=== PATIENT | female | born 1985 | race Caucasian/White ===

== ENCOUNTER 2019-02-17 15:30 | Emergency (ER) | payer MEDICAID ==
[~2019-02-17] VITALS: Ht 154.9 cm; Wt 93.9 kg
[2019-02-17 15:37] VITALS: Ht 154.9 cm; Wt 93.9 kg
[2019-02-17 17:50] LABS: BASOPHIL % 0.3 % (0-2)
[2019-02-17 17:55] LABS: CALCIUM 8.7 mg/dL (8.5-10.1); CARBON DIOXIDE 26.4 mmol/L (21-32); CHLORIDE SERUM 105 mmol/L (98-107); CREATININE SERUM 0.9 mg/dL (0.6-1.0); GFR1 > 60 mL/min; GLUCOSE SERUM 113 mg/dL (74-106); POTASSIUM SERUM 3.4 mmol/L (3.5-5.1); SODIUM SERUM 141 mmol/L (136-145)
[2019-02-17 17:56] LABS: PLATELET COUNT 546 x10^3mcL (130-400)
[2019-02-17 18:00] LABS: ALBUMIN 3.3 g/dL (3.4-5.0); ALKALINE PHOSPHATASE 99 U/L (46-116); ALT/SGPT 23 U/L (14-59); AST/SGOT 15 U/L (15-37); BILIRUBIN TOTAL 0.1 mg/dL (0.20-1.00); LIPASE 187 IU/L (73-393); TOTAL PROTEIN, SERUM 7.4 g/dL (6.4-8.2)
[2019-02-17 19:27] VITALS: BP 108/76
== END 2019-02-17 19:20 | disposition home or self-care (01) ==
LOC: ED 15:30
PROVIDERS: Emergency Medicine
DX: E80.21 Acute intermittent (hepatic) porphyria (principal); E78.00 Pure hypercholesterolemia, unspecified; E03.9 Hypothyroidism, unspecified; Z88.6 Allergy status to analgesic agent; Z88.8 Allergy status to other drugs, medicaments and biological substances
CPT/HCPCS: J2405; J3010; J7030

== ENCOUNTER 2019-02-18 13:47 | Emergency (ER) | payer MEDICAID ==
[~2019-02-18] VITALS: Ht 154.9 cm; Wt 93.4 kg
[2019-02-18 14:04] VITALS: Ht 154.9 cm; Wt 93.4 kg
[2019-02-18 16:16] LABS: BASOPHIL % 0.9 % (0-2); RED CELL DISTRIBUTION WIDTH 13.5 % (11.5-14.5)
[2019-02-18 16:18] LABS: PLATELET COUNT 640 x10^3mcL (130-400)
[2019-02-18 16:23] LABS: CALCIUM 9.2 mg/dL (8.5-10.1); CARBON DIOXIDE 27.3 mmol/L (21-32); CHLORIDE SERUM 104 mmol/L (98-107); CREATININE SERUM 0.9 mg/dL (0.6-1.0); GFR1 > 60 mL/min; GLUCOSE SERUM 88 mg/dL (74-106); POTASSIUM SERUM 3.6 mmol/L (3.5-5.1); SODIUM SERUM 140 mmol/L (136-145)
[2019-02-18 16:29] LABS: ALBUMIN 3.5 g/dL (3.4-5.0); ALKALINE PHOSPHATASE 106 U/L (46-116); ALT/SGPT 18 U/L (14-59); BILIRUBIN TOTAL 0.2 mg/dL (0.20-1.00); LIPASE 84 IU/L (73-393); TOTAL PROTEIN, SERUM 7.6 g/dL (6.4-8.2)
[2019-02-18 16:57] LABS: AST/SGOT 9 U/L (15-37)
[2019-02-18 18:35] VITALS: BP 102/51
== END 2019-02-18 18:35 | disposition home or self-care (01) ==
LOC: ED 13:47
PROVIDERS: Emergency Medicine
DX: E80.20 Unspecified porphyria (principal); E03.9 Hypothyroidism, unspecified; E78.00 Pure hypercholesterolemia, unspecified; Z90.49 Acquired absence of other specified parts of digestive tract; Z88.6 Allergy status to analgesic agent; Z88.8 Allergy status to other drugs, medicaments and biological substances; Z90.89 Acquired absence of other organs
CPT/HCPCS: J2270; J2405; J3490; J7042